=== PATIENT | female | born 1960 | race African-American/Black ===

== ENCOUNTER 2019-07-23 19:11 | Emergency (ER) | payer OTHER ==
[~2019-07-23] VITALS: Ht 165.1 cm; Wt 130.0 kg
[2019-07-23] MEDS ORDERED: NAPROXEN 250MG TABLET PO ONE (20:15)
[2019-07-23 21:32] VITALS: BP 133/79
== END 2019-07-23 21:33 | disposition home or self-care (01) ==
LOC: ER 19:11
DX: M25.561 Pain in right knee (principal); M79.89 Other specified soft tissue disorders; M19.90 Unspecified osteoarthritis, unspecified site; Z87.891 Personal history of nicotine dependence; Z98.890 Other specified postprocedural states
CPT/HCPCS: 73562; 93971; 99284; L1830

== ENCOUNTER 2021-01-22 18:49 | Emergency (ER) | payer OTHER ==
[~2021-01-22] VITALS: Ht 165.1 cm; Wt 125.1 kg
[2021-01-22 19:58] LABS: CLARITY URINE CLOUDY (CLEAR); COLOR URINE YELLOW (YELLOW); KETONES URINE TRACE (NEGATIVE); LEUKOCYTE ESTERASE URINE 2+ (NEGATIVE); NITRITE URINE NEGATIVE (NEGATIVE); OCCULT BLOOD URINE NEGATIVE (NEGATIVE); PROTEIN URINE NEGATIVE (NEGATIVE); SPECIFIC GRAVITY URINE 1.034 (1.005-1.030)
[2021-01-22 20:27] LABS: *AMPHETAMINES SCREEN URINE NEGATIVE (NEGATIVE); *BARBITURATES SCREEN URINE NEGATIVE (NEGATIVE); *BENZODIAZEPINES SCREEN URINE NEGATIVE (NEGATIVE); *COCAINE SCREEN URINE NEGATIVE (NEGATIVE); METHADONE URINE SCREEN NEGATIVE (NEGATIVE)
[2021-01-22 20:28] LABS: CANNABINOID URINE SCREEN NEGATIVE (NEGATIVE); OPIATES URINE SCREEN NEGATIVE (NEGATIVE); PHENCYCLIDINE URINE SCREEN NEGATIVE (NEGATIVE)
[2021-01-22 20:36] LABS: EOSINOPHILS % 14.2 % (0.0-5.0); HEMATOCRIT. 38.8 % (36.0-48.0); HEMOGLOBIN. 12.8 g/dL (12.0-16.0); LYMPHOCYTES % 18.2 % (20.0-50.0); MEAN CORPUSCULAR HEMOGLOBIN 29.2 pg (28.0-32.0); MEAN CORPUSCULAR VOLUME 88.4 fL (81.0-99.0); MEAN PLATELET VOLUME 7.6 fl (7.4-10.4); MONOCYTES % 6.5 % (2.0-8.0); NEUTROPHILS % 60.1 % (40.0-76.0); PLATELET 289 x1000/uL (130-400); RED BLOOD CELL COUNT 4.39 mill/uL (4.2-5.4); RED CELL DISTRIBUTION WIDTH 14.6 % (11.6-14.6)
[2021-01-22 20:42] LABS: CHLORIDE 107 mEq/L (98-107)
[2021-01-22 20:50] LABS: INR 0.9; PROTHROMBIN TIME 10.2 sec (9.6-11.0)
[2021-01-22] MEDS ORDERED: CEPHALEXIN 250MG CAPSULE PO ONE (23:00)
[2021-01-22] MEDS ORDERED: CEPH250C2 MT (23:09)
[2021-01-22 23:23] VITALS: BP 135/92
== END 2021-01-22 23:30 | disposition home or self-care (01) ==
LOC: ER 18:49
DX: R20.2 Paresthesia of skin (principal); N39.0 Urinary tract infection, site not specified; Z85.048 Personal history of other malignant neoplasm of rectum, rectosigmoid junction, and anus; Z98.890 Other specified postprocedural states; Z92.21 Personal history of antineoplastic chemotherapy; Z92.3 Personal history of irradiation
CPT/HCPCS: 36415; 80053; 80305; 81003; 82962; 84484; 85025; 93005; 99285

== ENCOUNTER 2022-01-18 11:09 | Inpatient (IN) | payer OTHER ==
[~2022-01-18] VITALS: Ht 165.1 cm; Wt 129.3 kg
[~2022-01-18 11:09] MED LIST: CEPH250C2 MT
[2022-01-18] MEDS ORDERED: ALBUTEROL (0.083%) 2.5MG/3ML NEB HHN STA (13:06)
[2022-01-18] MEDS ORDERED: METHYLPREDNISOLONE SOD SUCC 125 MG/2 ML VIAL IV STA (13:06)
[2022-01-18] MEDS ORDERED: ASPIRIN 81MG TABLET PO ONE (13:15)
[2022-01-18 13:32] LABS: BASOPHILS % 1.2 % (0.0-2.0); HEMATOCRIT. 44.6 % (36.0-48.0); HEMOGLOBIN. 14.6 g/dL (12.0-16.0); LYMPHOCYTES % 15.4 % (20.0-50.0); MEAN CORPUSCULAR HEMOGLOBIN 28.7 pg (28.0-32.0); MEAN CORPUSCULAR VOLUME 87.6 fL (81.0-99.0); MEAN PLATELET VOLUME 7.7 fl (7.4-10.4); MONOCYTES % 6.2 % (2.0-8.0); NEUTROPHILS % 63.2 % (40.0-76.0); PLATELET 300 x1000/uL (130-400); RED BLOOD CELL COUNT 5.09 mill/uL (4.2-5.4); RED CELL DISTRIBUTION WIDTH 14.5 % (11.6-14.6)
[2022-01-18 13:38] LABS: CHLORIDE 105 mEq/L (98-107)
[2022-01-18 13:49] LABS: ETHANOL BLOOD < 10 mg/dL
[2022-01-18] MEDS ORDERED: ENOXAPARIN 100MG/ML SYR SUBCUT NR (14:15)
[2022-01-18] MEDS ORDERED: ASPIRIN 81MG TABLET PO NR (14:28)
[2022-01-18] MEDS ORDERED: ASPIRIN 81MG EC TABLET PO ONE (14:45)
[2022-01-18 15:31] LABS: PROTHROMBIN TIME 10.9 sec (9.6-11.0)
[2022-01-18 15:51] LABS: BG BASE EXCESS -1.8 mmol/L (-2.0-2.0); BG CARBOXYHEMOGLOBIN 0.7 % (0.5-1.5); BG DEOXYHEMOGLOBIN 6.5 % (0.0-5.0); BG HCO3 ACT 23.1 mmol/L (22.0-26.0); BG METHEMOGLOBIN 0.2 % (0.0-1.5); BG OXYGEN SATURATION 93.4 % (92.0-98.5); BG OXYHEMOGLOBIN 92.6 % (94.0-97.0); BG PCO2 39.7 mmHg (35.0-45.0); BG PH 7.382 (7.350-7.450); BG PO2 71.8 mmHg (75.0-100.0); BG SAMPLE SITE RIGHT RADIAL; BG TOTAL HEMOGLOBIN 14.8 g/dL (12.0-18.0); BG VENT MODE NASAL CANNULA
[2022-01-18] MEDS ORDERED: FLUT1BLS3 INH (16:56)
[2022-01-18] MEDS ORDERED: ALBU2.5V13 NEB (16:57)
[2022-01-18] MEDS ORDERED: ENOXAPARIN 40MG/0.4ML SYR SUBCUT SCH (19:45)
[2022-01-18] MEDS ORDERED: MAGNESIUM/ALUMINUM HYDROXIDE/SIMETHICONE 30ML UDC PO PRN (19:45)
[2022-01-18] MEDS ORDERED: ONDANSETRON HCL 4MG/2ML INJ IV PRN (19:45)
[2022-01-18] MEDS ORDERED: ACETAMINOPHEN 325MG TABLET PO PRN (19:45)
[2022-01-18] MEDS ORDERED: DOCUSATE SODIUM 100MG CAPSULE PO PRN (19:45)
[2022-01-18] MEDS ORDERED: SODIUM CHLORIDE 45ML SPRAY NS SCH (20:00)
[2022-01-18] MEDS: IPRATROPIUM/ALBUTEROL 0.5-3(2.5)MG/3ML NEB HHN SCH (20:00)
[2022-01-18] MEDS ORDERED: LEVOFLOXACIN 500MG PREMIX 100 ML IV SCH (20:00)
[2022-01-18 20:20] VITALS: BP 149/84
[2022-01-18] MEDS ORDERED: FLUTICASONE PROPIONATE 50MCG/SPRAY BOTTLE BOTHNSTRLS SCH (21:00)
[2022-01-18] MEDS ORDERED: OXYMETAZOLINE HCL NASAL SPRAY 15ML BOTHNSTRLS SCH (21:00)
[2022-01-18] MEDS ORDERED: ZOLPIDEM TARTRATE 5MG TABLET PO PRN (21:00)
[2022-01-18] MEDS: ATORVASTATIN CALCIUM 40MG TABLET PO SCH (21:42)
[2022-01-18] MEDS: SODIUM CHLORIDE 0.9% INJ 3ML FLUSH IVF SCH (21:42)
[2022-01-18] MEDS: GUAIFENESIN 200MG/10ML SUGAR FREE UDC PO PRN (21:42)
[2022-01-18] MEDS: OXYMETAZOLINE HCL NASAL SPRAY 15ML BOTHNSTRLS SCH (23:44)
[2022-01-18] MEDS: SODIUM CHLORIDE 45ML SPRAY NS SCH (23:44)
[2022-01-18] MEDS: FLUTICASONE PROPIONATE 50MCG/SPRAY BOTTLE BOTHNSTRLS SCH (23:44)
[2022-01-18] MEDS: LEVOFLOXACIN 500MG PREMIX 100 ML IV SCH (23:44)
[2022-01-19] VITALS: BP 120/56
[2022-01-19] MEDS: IPRATROPIUM/ALBUTEROL 0.5-3(2.5)MG/3ML NEB HHN SCH ×6 (00:42→20:55)
[2022-01-19] MEDS: SODIUM CHLORIDE 45ML SPRAY NS SCH ×5 (03:47→21:04)
[2022-01-19 04:00] VITALS: BP 128/62
[2022-01-19] MEDS: SODIUM CHLORIDE 0.9% INJ 3ML FLUSH IVF SCH ×3 (05:56→22:00)
[2022-01-19 08:00] VITALS: BP 125/60
[2022-01-19] MEDS ORDERED: PNEUMOCOCCAL 23-VAL P-SAC VAC 0.5 ML IM ONE (09:00)
[2022-01-19] MEDS ORDERED: ENOXAPARIN 120MG/0.8ML SYR SUBCUT SCH (09:00)
[2022-01-19] MEDS ORDERED: ENOXAPARIN 30MG/0.3ML SYR SUBCUT SCH (09:00)
[2022-01-19] MEDS: GUAIFENESIN 200MG/10ML SUGAR FREE UDC PO PRN (10:04)
[2022-01-19] MEDS: FLUTICASONE PROPIONATE 50MCG/SPRAY BOTTLE BOTHNSTRLS SCH ×2 (10:07→21:04)
[2022-01-19] MEDS: OXYMETAZOLINE HCL NASAL SPRAY 15ML BOTHNSTRLS SCH ×2 (10:08→21:03)
[2022-01-19] MEDS: CETIRIZINE 10MG TABLET PO SCH (11:15)
[2022-01-19] MEDS: BENZONATATE 100MG CAPSULE PO PRN (11:15)
[2022-01-19 12:00] VITALS: BP 61/60
[2022-01-19] MEDS ORDERED: ENOXAPARIN 100MG/ML SYR SUBCUT SCH (14:15)
[2022-01-19 16:00] VITALS: BP 123/59
[2022-01-19] MEDS ORDERED: IOHEXOL-350 100 ML BOTTLE ONE (16:01)
[2022-01-19 20:00] VITALS: BP 110/68
[2022-01-19] MEDS: ATORVASTATIN CALCIUM 40MG TABLET PO SCH (21:03)
[2022-01-19] MEDS: ENOXAPARIN 120MG/0.8ML SYR SUBCUT SCH (23:01)
[2022-01-19] MEDS: LEVOFLOXACIN 500MG PREMIX 100 ML IV SCH (23:06)
[2022-01-20] VITALS: BP 112/48
[2022-01-20] MEDS: SODIUM CHLORIDE 45ML SPRAY NS SCH ×6 (00:15→21:26)
[2022-01-20] MEDS: IPRATROPIUM/ALBUTEROL 0.5-3(2.5)MG/3ML NEB HHN SCH ×5 (00:27→16:42)
[2022-01-20 04:00] VITALS: BP 122/69
[2022-01-20] MEDS: BENZONATATE 100MG CAPSULE PO PRN ×2 (04:01→14:14)
[2022-01-20] MEDS: SODIUM CHLORIDE 0.9% INJ 3ML FLUSH IVF SCH ×3 (06:05→21:30)
[2022-01-20 07:54] VITALS: BP 129/63
[2022-01-20] MEDS: CETIRIZINE 10MG TABLET PO SCH (08:49)
[2022-01-20] MEDS: ENOXAPARIN 120MG/0.8ML SYR SUBCUT SCH (08:50)
[2022-01-20] MEDS: OXYMETAZOLINE HCL NASAL SPRAY 15ML BOTHNSTRLS SCH ×2 (08:50→21:27)
[2022-01-20] MEDS: FLUTICASONE PROPIONATE 50MCG/SPRAY BOTTLE BOTHNSTRLS SCH ×2 (08:50→21:27)
[2022-01-20 11:45] VITALS: BP 109/63
[2022-01-20] MEDS: METHYLPREDNISOLONE SOD SUCC 125 MG/2 ML VIAL IV SCH ×2 (14:13→21:27)
[2022-01-20 15:46] VITALS: BP 111/60
[2022-01-20 20:00] VITALS: BP 110/72
[2022-01-20] MEDS: ATORVASTATIN CALCIUM 40MG TABLET PO SCH (21:28)
[2022-01-20] MEDS: LEVOFLOXACIN 500MG PREMIX 100 ML IV SCH (21:28)
[2022-01-21] VITALS: BP 126/66
[2022-01-21] MEDS: IPRATROPIUM/ALBUTEROL 0.5-3(2.5)MG/3ML NEB HHN SCH ×6 (00:08→22:09)
[2022-01-21] MEDS: SODIUM CHLORIDE 45ML SPRAY NS SCH ×6 (01:00→22:41)
[2022-01-21 04:00] VITALS: BP 98/59
[2022-01-21] MEDS: METHYLPREDNISOLONE SOD SUCC 125 MG/2 ML VIAL IV SCH ×3 (06:00→22:43)
[2022-01-21] MEDS: SODIUM CHLORIDE 0.9% INJ 3ML FLUSH IVF SCH ×3 (06:00→22:44)
[2022-01-21 08:00] VITALS: BP 102/57
[2022-01-21] MEDS: FLUTICASONE PROPIONATE 50MCG/SPRAY BOTTLE BOTHNSTRLS SCH ×2 (09:06→22:41)
[2022-01-21] MEDS: OXYMETAZOLINE HCL NASAL SPRAY 15ML BOTHNSTRLS SCH ×2 (09:06→22:41)
[2022-01-21] MEDS: CETIRIZINE 10MG TABLET PO SCH (09:07)
[2022-01-21] MEDS: ENOXAPARIN 30MG/0.3ML SYR SUBCUT SCH ×2 (09:11→22:44)
[2022-01-21] MEDS: BENZONATATE 100MG CAPSULE PO PRN (09:21)
[2022-01-21 11:00] LABS: HEMATOCRIT. 41.6 % (36.0-48.0); HEMOGLOBIN. 13.6 g/dL (12.0-16.0); MEAN CORPUSCULAR HEMOGLOBIN 28.9 pg (28.0-32.0); MEAN CORPUSCULAR VOLUME 88.4 fL (81.0-99.0); MEAN PLATELET VOLUME 8.4 fl (7.4-10.4); PLATELET 303 x1000/uL (130-400); RED BLOOD CELL COUNT 4.71 mill/uL (4.2-5.4)
[2022-01-21 11:11] LABS: CHLORIDE 106 mEq/L (98-107)
[2022-01-21 12:00] VITALS: BP 149/87
[2022-01-21] MEDS: ASPIRIN 81MG EC TABLET PO SCH (12:29)
[2022-01-21 16:00] VITALS: BP 120/60
[2022-01-21 20:00] VITALS: BP 130/73
[2022-01-21] MEDS ORDERED: LEVOFLOXACIN 500MG TABLET PO SCH (21:00)
[2022-01-21 22:01] LABS: PLATELET ESTIMATE NORMAL
[2022-01-21] MEDS: ATORVASTATIN CALCIUM 40MG TABLET PO SCH (22:42)
[2022-01-22] VITALS: BP 121/57
[2022-01-22] MEDS: IPRATROPIUM/ALBUTEROL 0.5-3(2.5)MG/3ML NEB HHN SCH ×3 (01:58→08:52)
[2022-01-22 04:00] VITALS: BP 134/76
[2022-01-22] MEDS: BENZONATATE 100MG CAPSULE PO PRN (04:11)
[2022-01-22] MEDS: SODIUM CHLORIDE 45ML SPRAY NS SCH ×4 (04:11→13:19)
[2022-01-22] MEDS: SODIUM CHLORIDE 0.9% INJ 3ML FLUSH IVF SCH (05:53)
[2022-01-22] MEDS: METHYLPREDNISOLONE SOD SUCC 125 MG/2 ML VIAL IV SCH ×2 (05:53→13:18)
[2022-01-22 08:00] VITALS: BP 139/73
[2022-01-22] MEDS: CETIRIZINE 10MG TABLET PO SCH (08:39)
[2022-01-22] MEDS: ASPIRIN 81MG EC TABLET PO SCH (08:39)
[2022-01-22] MEDS: OXYMETAZOLINE HCL NASAL SPRAY 15ML BOTHNSTRLS SCH (08:40)
[2022-01-22] MEDS: ENOXAPARIN 30MG/0.3ML SYR SUBCUT SCH (08:41)
[2022-01-22 10:01] LABS: BG BASE EXCESS -2.9 mmol/L (-2.0-2.0); BG CARBOXYHEMOGLOBIN 0.3 % (0.5-1.5); BG DEOXYHEMOGLOBIN 5.4 % (0.0-5.0); BG FRACTION INSPIRED OXYGEN 21; BG HCO3 ACT 21.2 mmol/L (22.0-26.0); BG METHEMOGLOBIN 0.5 % (0.0-1.5); BG OXYGEN SATURATION 94.6 % (92.0-98.5); BG OXYHEMOGLOBIN 93.8 % (94.0-97.0); BG PCO2 35.1 mmHg (35.0-45.0); BG PH 7.398 (7.350-7.450); BG PO2 77.5 mmHg (75.0-100.0); BG SAMPLE SITE LEFT RADIAL; BG TOTAL HEMOGLOBIN 14.6 g/dL (12.0-18.0); BG VENT MODE ROOM AIR
[2022-01-22 10:23] VITALS: BP 139/73
[2022-01-22 12:00] VITALS: BP 132/70
== END 2022-01-22 14:11 | disposition home or self-care (01) | DRG 189 ==
LOC: ER 12:00 → ENRESERV 15:21 → 8WST 20:13
PROVIDERS: ADMIT Specialist; ATTEND Specialist
DX: J96.21 Acute and chronic respiratory failure with hypoxia (principal); J45.51 Severe persistent asthma with (acute) exacerbation; Z68.42 Body mass index [BMI] 45.0-49.9, adult; E66.01 Morbid (severe) obesity due to excess calories; D72.10 Eosinophilia, unspecified; F10.11 Alcohol abuse, in remission; J43.9 Emphysema, unspecified; I11.9 Hypertensive heart disease without heart failure; J30.9 Allergic rhinitis, unspecified; Z20.822 Contact with and (suspected) exposure to COVID-19; Z92.21 Personal history of antineoplastic chemotherapy; Z85.048 Personal history of other malignant neoplasm of rectum, rectosigmoid junction, and anus; Z87.891 Personal history of nicotine dependence; Z92.3 Personal history of irradiation; Z82.49 Family history of ischemic heart disease and other diseases of the circulatory system; Z71.3 Dietary counseling and surveillance
CPT/HCPCS: 36415; 36600; 71045; 71250; 71275; 80053; 80320; 82375; 82805; 83036; 83605; 83735; 83880; 84443; 84484; 85025; 85379; 87426; 93005; 93306; 93880; 93970; 94640; 99285; C9803; J1650; J1956; J2930; J7040; Q9967; G0480